=== PATIENT | female | born 1980 | race Caucasian/White ===

== ENCOUNTER 2017-04-17 06:32 | Day surgery (SDC) | payer BC ==
[2017-04-17 06:17] LABS: CHLORIDE,CL 108 mmol/L (98-110); SODIUM,NA 138 mmol/L (136-146)
--- NOTE | 2017-04-17 07:18 | PCM.PREANE ---
Preanesthetic Assessment - Anesthesia/Transfusion/Family Hx Anesthesia History: Prior Anesthesia Without Reaction Family History of Anesthesia Reaction: No Transfusion History: No Prior Transfusion(s) Intubation History: Unknown - Review of Systems General: No Symptoms Pulmonary: No Symptoms Cardiovascular: No Symptoms Gastrointestinal: No Symptoms Neurological: No Symptoms Other: Reports: None - Physical Assessment NPO Status Date: 04/16/17 NPO Status Time: 21:00 O2 Sat by Pulse Oximetry: 100 Respiratory Rate: 16 Vital Signs: Last Vital Signs Temp 36.5 C 04/17/17 06:45 Pulse 52 L 04/17/17 06:45 Resp 16 04/17/17 06:45 BP 140/76 04/17/17 06:45 Pulse Ox 100 04/17/17 06:45 Height: 1.61 m Weight: 58.513 kg ASA Class: 1 Mental Status: Alert & Oriented x3 Airway Class: Mallampati = 2 Dentition: Reports: Normal Dentition Thyro-Mental Finger Breadths: 3 Mouth Opening Finger Breadths: 3 ROM/Head Extension: Full Lungs: Clear to Auscultation, Normal Respiratory Effort Cardiovascular: Regular Rate, Regular Rhythm - Lab Values: Laboratory Last Values WBC 5.30 K/uL (4.0-11.0) 04/16/17 17:12 RBC 4.89 M/uL (4.30-5.90) 04/16/17 17:12 Hgb 12.2 g/dL (12.0-16.0) 04/16/17 17:12 Hct 37.8 % (36.0-46.0) 04/16/17 17:12 MCV 77.3 fL (80.0-98.0) L 04/16/17 17:12 MCH 24.9 pg (27.0-32.0) L 04/16/17 17:12 MCHC 32.3 g/dL (31.0-37.0) 04/16/17 17:12 RDW Std Deviation 40.9 fl (28.0-62.0) 04/16/17 17:12 RDW Coeff of Jose 14 % (11.0-15.0) 04/16/17 17:12 Plt Count 265 K/uL (150-400) 04/16/17 17:12 MPV 10.20 fL (7.40-12.00) 04/16/17 17:12 Neut % (Auto) 56.3 % (48.0-80.0) 04/16/17 17:12 Lymph % (Auto) 34.9 % (16.0-40.0) 04/16/17 17:12 [place] % (Auto) 7.5 % (0.0-15.0) 04/16/17 17:12 Eos % (Auto) 0.9 % (0.0-7.0) 04/16/17 17:12 Baso % (Auto) 0.4 % (0.0-1.5) 04/16/17 17:12 Neut # (Auto) 3.0 K/uL (1.4-5.7) 04/16/17 17:12 Lymph # (Auto) 1.9 K/uL (0.6-2.4) 04/16/17 17:12 [place] # (Auto) 0.4 K/uL (0.0-0.8) 04/16/17 17:12 Eos # (Auto) 0.1 K/uL (0.0-0.7) 04/16/17 17:12 Baso # (Auto) 0.0 K/uL (0.0-0.1) 04/16/17 17:12 Nucleated RBC % 0.0 /100WBC 04/16/17 17:12 Nucleated RBCs # 0 K/uL 04/16/17 17:12 Sodium 138 mmol/L (136-146) 04/16/17 17:12 Potassium 3.9 mmol/L (3.5-5.1) 04/16/17 17:12 Chloride 108 mmol/L (98-110) 04/16/17 17:12 Carbon Dioxide 22 mmol/L (21-31) 04/16/17 17:12 BUN 15 mg/dL (6.0-23.0) 04/16/17 17:12 Creatinine 0.8 mg/dL (0.6-1.5) 04/16/17 17:12 Est Cr Clr Drug Dosing 82.97 mL/min 04/16/17 17:12 Estimated GFR (MDRD) > 60.0 ml/min 04/16/17 17:12 Glucose 90 mg/dL (60-110) 04/16/17 17:12 Calcium 9.1 mg/dL (8.8-10.8) 04/16/17 17:12 HCG, Qual NEGATIVE (NEG) 04/16/17 17:12 Blood Type O POSITIVE 04/16/17 17:12 Antibody Screen NEGATIVE 04/16/17 17:12 - Allergies Allergies/Adverse Reactions: Allergies Allergy/AdvReac Type Severity Reaction Status Date / Time No Known Allergies Allergy Verified 04/12/17 09:17 - Blood Blood Available: No - Anesthesia Plan Pre-Op Medication Ordered: None - Acknowledgements Anesthesia Type Planned: General Anesthesia Pt an Appropriate Candidate for the Planned Anesthesia: Yes Alternatives and Risks of Anesthesia Discussed w Pt/Guardian: Yes Pt/Guardian Understands and Agrees with Anesthesia Plan: Yes PreAnesthesia Questionnaire HEENT History: Reports: Other (See Below) Other HEENT History: wears glasses Gastrointestinal History: Reports: None Genitourinary History: Reports: None HOST History: Reports: , Other (See Below) (bicornu uterus) Dermatologic History: Reports: None - Past Surgical History Head Surgeries/Procedures: Reports: None HEENT Surgical History: Reports: Other (See Below) Other HEENT Surgeries/Procedures: septum repair GI Surgical History: Reports: Cholecystectomy Female Surgical History: Reports: Section (x3) Dermatological Surgical History: Reports: Other (See Below) (scar revision) - SUBSTANCE USE Smoking Status *Q: Never Smoker Recreational Drug Use History: No - HOME MEDS Home Medications: Home Meds Aloe Vera 1 tab PO BEDTIME 04/12/17 [History] Fluticasone Furoate [Flonase Sensimist] 1 spray NASBOTH ASDIRECTED PRN 04/12/17 [History] - CURRENT (IN HOUSE) MEDS Current Meds: Current Medications Lactated Ringer's (Ringers, Lactated) 1,000 mls @ 125 mls/hr IV ASDIRECTED YURI
[2017-04-17] MEDS: Lactated Ringers 1,000 ML IV SCH ×2 (07:24→14:11)
[2017-04-17] MEDS ORDERED: Succinylcholine/Normal Saline 200 MG/10 ML Syringe ONE (07:32)
[2017-04-17] MEDS ORDERED: fentaNYL 100 MCG/2 ML SDV ONE ×3 (07:32→10:08)
[2017-04-17] MEDS ORDERED: Propofol 200 MG/20 ML SDV ONE (07:32)
[2017-04-17] MEDS ORDERED: Midazolam 1 MG/ML 2 ML SDV ONE (07:32)
[2017-04-17] MEDS ORDERED: Rocuronium 10 MG/ML 10 ML Syringe ONE (07:32)
[2017-04-17] MEDS ORDERED: Lidocaine 2% 5 ML SDV ONE (07:32)
[2017-04-17] MEDS ORDERED: Belladonna Alkaloids/Opium 16.2-30 MG Supp RECTAL PRN (07:40)
[2017-04-17] MEDS ORDERED: Methylene Blue 50 MG/10 ML Ampule ONE (07:41)
[2017-04-17] MEDS ORDERED: Bupivacaine 0.25% 10 ML SDV ONE (07:42)
[2017-04-17] MEDS ORDERED: Fluorescein 5 ML Vial ONE (07:55)
[2017-04-17] MEDS ORDERED: Sodium Chloride 0.9% 20 ML ONE (08:05)
[2017-04-17] MEDS ORDERED: ceFAZolin 1 GM Vial ONE (08:05)
[2017-04-17] MEDS ORDERED: HYDROmorphone 2 MG/ML SDV ONE (08:34)
[2017-04-17] MEDS ORDERED: Ketorolac 30 MG/ML SDV ONE (08:44)
[2017-04-17] MEDS ORDERED: Ondansetron 4 MG/2 ML SDV ONE (08:44)
[2017-04-17] MEDS ORDERED: Glycopyrrolate 0.2 MG/ML SDV ONE (08:44)
[2017-04-17] MEDS ORDERED: Neostigmine Methylsulfate 1 MG/ML 5 ML Syringe ONE (08:44)
[2017-04-17] MEDS ORDERED: Furosemide 40 MG/4 ML VIAL ONE (08:45)
[2017-04-17] MEDS: fentaNYL 100 MCG/2 ML SDV IVPUSH PRN ×2 (10:40→10:45)
[2017-04-17] MEDS ORDERED: Ondansetron 4 MG/2 ML SDV IVPUSH PRN (10:42)
[2017-04-17] MEDS ORDERED: Morphine 4 MG/ML Syringe IVPUSH PRN (10:42)
[2017-04-17] MEDS ORDERED: Promethazine 25 MG/ML SDV IM PRN (10:42)
--- NOTE | 2017-04-17 10:42 | PCM.OPNOTE ---
- General Post-Op/Procedure Note Date of Surgery/Procedure: 04/17/17 Operative Procedure(s): laparoscopically assisted vaginal hysterectomy with bilateral salpingectomy and repair of cystotomy Findings: Adhesion of the omentum to left lower quadrant. Left tube was encased in adhesions adjacent to the left ovary, adhesions between the peritoneum overlying the bladder and the anterior abdominal wall. Dense adhesions between the cervix and bladder, bicornuate uterus. On cystoscopy there was copious flow of urine/fluoroscein from bilateral ureteral orifices and the cystotomy repair was intact when bladder was distended. Pre Op Diagnosis: menorrhagia, bicornuate uterus, prior X3 Post-Op Diagnosis: Same and dense pelvic adhesions Anesthesia Technique: General ET Tube Primary Surgeon: Khadijah Villavicencio Secondary Surgeon: Ania Tucker Anesthesia Provider: Adry Arellano Monologist: Tsering Holcomb Pathology: uterus and bilateral fallopian tubes. Fluid Replacement, Intraop: 2,000 EBL in mLs: 200 Complications: None Known Condition: Good
[2017-04-17] MEDS ORDERED: FLUTICASONE FUROATE NASBOTH PRN (10:50)
[2017-04-17] MEDS ORDERED: Belladonna Alkaloids/Opium 16.2-30 MG Supp RECTAL ONE (10:58)
[2017-04-17] MEDS ORDERED: Acetaminophen 1,000 MG in Premix Bag 1 BAG IV ONE (10:58)
[2017-04-17] MEDS: Morphine 2 MG/ML Syringe IVPUSH PRN ×4 (12:31→19:43)
[2017-04-17] MEDS: Acetaminophen/oxyCODONE 325-5 MG Tab PO PRN ×2 (13:39→18:09)
[2017-04-17] MEDS: Ibuprofen 800 MG Tab PO PRN ×2 (15:02→21:18)
--- NOTE | 2017-04-17 15:56 | PCM.SN ---
- Free Text/Narrative Note: AFVSS Pain currently 4-5 /10, improved after oral Ibuprofen. Reviewed operative findings including extensive adhesions between bladder and cervix with cystotomy. Discussed plan to continue catheter for 7 days with oral antibiotic prophylaxis. After next course of pain medication, will have her ambulate. Hgb 10.3 postop.
--- NOTE | 2017-04-17 16:22 | OR ---
SURGEON: Khadijah Villavicencio M.D. DATE OF PROCEDURE: 04/17/2017 PREOPERATIVE DIAGNOSES: 1. Menorrhagia. 2. Stress urinary incontinence. POSTOPERATIVE DIAGNOSES: 1. Menorrhagia. 2. Stress urinary incontinence. PROCEDURES PERFORMED: Laparoscopically assisted vaginal hysterectomy with bilateral salpingectomy, cystotomy, and repair. [employer]SE LABORER: Ania Tucker MD ANESTHESIA: General endotracheal. FLUIDS: 2000 mL of crystalloid. ESTIMATED BLOOD LOSS: 200 mL. FINDINGS: There were adhesions of the omentum to the left lower quadrant. Dense adhesion between the anterior bladder peritoneum and the anterior abdominal wall. The left tube was encased adjacent to the left ovary and adhesions. The bilateral ovaries did appear normal. The uterus was bicornuate in shape. The bladder was densely adherent to the lower uterine segment and cervix. DISPOSITION: Stable to recovery. COMPLICATIONS: None known. BRIEF HISTORY: This is a 36-year-old female, she is G3, P 3 with three prior deliveries. She has been treated for menorrhagia over recent years using hormonal therapy. However, due to her bicornuate uterus, she is not a candidate for more conservative surgical therapies such as ablation or IUD. Then, menorrhagia has been getting more severe and she did have an endometrial biopsy, which was benign. Preoperatively, she desired definitive management with hysterectomy for risk reduction. She also requests removal of tubes with retention of ovaries. She has had three prior deliveries. She was counseled regarding risk of bladder adhesions including possibility of requiring a laparotomy for dissection of dense adhesions between the bladder and the lower uterine segment. Preoperatively, she also mentioned that she does have some stress incontinence and if possible, we would like to have this treated at the same time. She did undergo a cystometry. She was evaluated and was appropriate for a Solyx single incision suburethral sling. She is therefore consented for a laparoscopically assisted vaginal hysterectomy with bilateral salpingectomy and cystoscopy with possible laparotomy if dense adhesions are noted and Solyx mid urethral sling with risks discussed including bleeding, infection, injury to bowel, bladder, blood vessels, ureters or other organs, risk of thromboembolic event, and risk of anesthesia. Additional risks related to the sling include dyspareunia, mesh erosion into the urethra or into the vagina, urinary retention, and infection. Understanding all these risks, she does desire to proceed. DESCRIPTION OF PROCEDURE: With the patient in dorsal lithotomy position, under adequate general endotracheal anesthesia, the abdomen was prepped with chlorhexidine, and the perineum and vagina were prepped with Betadine and draped in usual fashion for a laparoscopically-assisted vaginal surgery. SCDs were in place. She had received a gram of Ancef IV. The bladder had been drained and then backfilled with 30 mL of dilute methylene blue and an appropriate time-out was held. Bimanual examination revealed an anteverted mobile uterus. The speculum was placed in the vagina. Anterior lip of the cervix was grasped with an Allis clamp and the uterus sounded to 10 cm. The cervix was dilated to 7 mm Hegar dilator. The ZUMI uterine manipulator was placed to the uterine fundus and filled with air. The speculum was removed. The coning machine operator's gloves were changed. Attention was then turned abdominally, where a 0.25% Marcaine was injected inferior to the umbilicus. A vertical 5 mm incision was made with a scalpel. The anterior abdominal wall was elevated. Veress needle was inserted. Opening pressure was 3 mmHg. CO2 was insufflated to develop an adequate pneumoperitoneum, and a 5 mm port was placed, and the laparoscope was placed into the abdominal cavity. There was no evidence of any trauma from the port placement and therefore the patient was placed in Trendelenburg position. Two additional ports were placed 2 cm medial and cephalad from the anterior superior iliac spine on the right and the left, these were 5 mm ports placed under direct visualization. Findings as recorded above were noted and decision was made to proceed starting on the left side with using the LigaSure to carefully dissect the fimbrial tip of the tube from the ovary. Due to the dense adhesions of the remainder of the tube, which was entirely encased. The fimbrial end was removed separately and sent with the entire specimen. The more proximal tube was then able to be grasped and carefully dissected free from the infundibulopelvic ligament and the ovary, and the LigaSure was used to proceed proximally along the mesosalpinx. As dissection was performed to the level of the uterus, the LigaSure was then placed through the medial port, and utero-ovarian ligament was cross clamped, doubly ligated, and cut, and the round ligament was cross clamped, doubly ligated, and cut, and the anterior leaf of the broad ligament was opened down to the level of the anterior cervix where dense adhesions began posteriorly. The broad ligament was opened and the uterine vessels were then doubly cauterized and ligated using the LigaSure. I began the dissection anteriorly, immediately adjacent to the lower uterine segment and cervix. Initially, incising and using the ligature to release the dense adhesion between the anterior bladder and the anterior abdominal wall, and then proceeding immediately adjacent to the lower uterine segment and cervix, lateral to proximally progressing approximately 2 to 3 cm before extremely dense adhesion was identified. The hydrodissection was then utilized and then attention was turned to the right side. The tube and ovary were free on the right. The LigaSure was utilized to proceed from distal to proximal along the mesosalpinx to release the tube, and then across the utero-ovarian ligament and the round ligament in a similar fashion as the opposite side. There were no adhesions on the right side; therefore, the anterior leaf was opened more easily along with the posterior leaf, and the uterine vessels were doubly cauterized and cut. I did further dissect anteriorly again immediately adjacent to the cervix ligating and incising the dense adhesions. I performed further hydrodissection; however, there remained a dense adhesion in the midline, which I felt was better addressed vaginally; therefore, the abdomen was desufflated. The abdomen was covered in sterile fashion. The patient was placed in the high Trendelenburg position, and attention was then turned vaginally. The Mcmanus catheter was then released. The weighted speculum was placed posteriorly, and the cervix was grasped with a Leonor tenaculum and circumscribed using electrocautery. The posterior cul-de-sac was entered sharply. The Arina Auvard speculum was placed posteriorly. The anterior dissection was begun and while palpating the midline area, it was noted that there was an adhesion, which was integral between the cervix and the bladder, a small cystotomy approximately 1 cm was performed, and then this facilitated release of the dense adhesion in a safe manner. The finger was then able to be placed into the peritoneal cavity. The smooth surface of the uterus was palpated and the bilateral uterosacral ligaments were cross clamped, cut, and ligated using Nany ligature of 2-0 Polysorb. There was a small pedicle remaining, which was cross clamped, cut, and ligated using Nany ligature of 2-0 Polysorb. The uterus and tubes were then delivered vaginally and sent to pathology along with the left fimbrial tip. The 1 cm cystotomy was then repaired using a running suture for the mucosal layer of 3-0 plain followed by an imbricating layer of 3-0 plane in the muscularis followed by imbricating layer in the peritoneum and muscularis of the 3-0 Polysorb. The bladder was then backfilled with sterile milk and the integrity was confirmed and the sterile milk was then released. The uterosacral ligaments, which had been plicated were ligated to the vaginal apices bilaterally. The vagina was then closed with a running lock suture of 0 Polysorb. Cystoscopy was then performed with findings of bilateral ureteral orifices showing copious flow of bright green urine after fluorescein had been given IV. The small cystotomy site was inspected and again the integrity was confirmed, and the plicated layer was visible within the bladder mucosa. The site was on the posterior bladder, several cm cephalad to the trigone. This being completed, a Mcmanus catheter was replaced, and attention was then turned abdominally. The pelvis was copiously irrigated. Any areas of bleeding that were noted were cauterized. Endo-Avitene was then placed at the vaginal cuff, and the abdomen was desufflated. The pelvis was inspected under 5 mmHg pressure and was completely hemostatic; therefore, the abdomen was completely desufflated. Port sites were removed. The skin was closed with a running subcuticular suture of 3-0 Caprosyn. Speculum was then used to inspect the vagina, which was hemostatic. Final sponge, needle, and instrument counts were reported as correct. There were no known complications. The patient was transferred to recovery in good condition. Please note that due to the required cystotomy, the mid urethral sling was not performed at this time and can be rescheduled at a later date. BENOIT / LELIA /[id number] ESPERANZA
[2017-04-17] MEDS ORDERED: hydrOXYzine Pamoate 25 MG Cap PO STA (20:46)
[2017-04-18 05:41] LABS: CHLORIDE,CL 109 mmol/L (98-110); SODIUM,NA 137 mmol/L (136-146)
--- NOTE | 2017-04-18 07:29 | PCM48HPAN ---
Post Anesthesia Note - EVALUATION WITHIN 48HRS OF ANESTHETIC Vital Signs in Normal Range: Yes Patient Participated in Evaluation: Yes Respiratory Function Stable: Yes Airway Patent: Yes Cardiovascular Function Stable: Yes Hydration Status Stable: Yes Pain Control Satisfactory: Yes Nausea and Vomiting Control Satisfactory: Yes Mental Status Recovered: Yes
[2017-04-18] MEDS: Ibuprofen 800 MG Tab PO PRN ×2 (07:53→13:32)
[2017-04-18] MEDS: Acetaminophen/oxyCODONE 325-5 MG Tab PO PRN ×2 (07:55→12:19)
--- NOTE | 2017-04-18 07:58 | PCM.SURGPN ---
- General Info Date of Service: 04/18/17 POD#: 1 Post-Op Diagnosis: menorrhagia Functional Status: Reports: Tolerating Diet, Ambulating. Denies: Pain Controlled (has not had pain med since last night. When taking pain meds, pain is controlled.), Urinating (will go home with leg bag for one week.) - Review of Systems General: Reports: No Symptoms HEENT: Reports: No Symptoms Pulmonary: Reports: No Symptoms Cardiovascular: Reports: No Symptoms Gastrointestinal: Reports: No Symptoms Genitourinary: Reports: No Symptoms Musculoskeletal: Reports: No Symptoms Skin: Reports: No Symptoms Neurological: Reports: No Symptoms Psychiatric: Reports: No Symptoms - Patient Data Vitals - Most Recent: Last Vital Signs Temp 36.9 C 04/18/17 04:00 Pulse 52 L 04/18/17 04:00 Resp 16 04/18/17 04:00 BP 95/56 L 04/18/17 04:00 Pulse Ox 96 04/18/17 04:00 Weight - Most Recent: 58.5 kg I&O - Last 24 Hours: Intake & Output 04/17/17 04/18/17 04/18/17 22:59 06:59 14:59 Intake Total 1070 350 Output Total 350 1100 Balance 720 -750 Lab Results Last 24 Hrs: Laboratory Results - last 24 hr 04/17/17 04/18/17 04/18/17 Range/Units 14:53 04:59 04:59 WBC 5.64 (4.0-11.0) K/uL RBC 4.21 L (4.30-5.90) M/uL Hgb 10.6 L 10.6 L (12.0-16.0) g/dL Hct 32.6 L 33.0 L (36.0-46.0) % MCV 78.4 L (80.0-98.0) fL MCH 25.2 L (27.0-32.0) pg MCHC 32.1 (31.0-37.0) g/dL RDW Std Deviation 41.0 (28.0-62.0) fl RDW Coeff of Jose 15 (11.0-15.0) % Plt Count 204 (150-400) K/uL MPV 10.20 (7.40-12.00) fL Neut % (Auto) 62.0 (48.0-80.0) % Lymph % (Auto) 29.6 (16.0-40.0) % Slope % (Auto) 7.3 (0.0-15.0) % Eos % (Auto) 0.9 (0.0-7.0) % Baso % (Auto) 0.2 (0.0-1.5) % Neut # (Auto) 3.5 (1.4-5.7) K/uL Lymph # (Auto) 1.7 (0.6-2.4) K/uL Slope # (Auto) 0.4 (0.0-0.8) K/uL Eos # (Auto) 0.1 (0.0-0.7) K/uL Baso # (Auto) 0.0 (0.0-0.1) K/uL Nucleated RBC % 0.0 /100WBC Nucleated RBCs # 0 K/uL Sodium 137 (136-146) mmol/L Potassium 4.2 (3.5-5.1) mmol/L Chloride 109 (98-110) mmol/L Carbon Dioxide 23 (21-31) mmol/L BUN 9 (6.0-23.0) mg/dL Creatinine 0.8 (0.6-1.5) mg/dL Est Cr Clr Drug Dosing 81.19 mL/min Estimated GFR (MDRD) > 60.0 ml/min Glucose 96 (60-110) mg/dL Calcium 8.2 L (8.8-10.8) mg/dL Med Orders - Current: Current Medications Lactated Ringer's (Ringers, Lactated) 1,000 mls @ 125 mls/hr IV ASDIRECTED [facility] Last Admin: 04/17/17 14:11 Dose: 125 mls/hr Ibuprofen (Motrin) 800 mg PO Q6H PRN PRN Reason: Pain (mild 1-3) Last Admin: 04/17/17 21:18 Dose: 800 mg Morphine Sulfate (Morphine) 2 mg IVPUSH Q2H PRN PRN Reason: Pain (severe 7-10) Last Admin: 04/17/17 19:43 Dose: 2 mg Morphine Sulfate (Morphine) 4 mg IVPUSH Q2H PRN PRN Reason: Pain (severe 7-10) Nitrofurantoin Macrocrystals (Macrobid) 100 mg PO DAILY YURI Ondansetron HCl (Zofran) 4 mg IVPUSH Q6H PRN PRN Reason: Nausea/Vomiting Oxycodone/Acetaminophen (Percocet 325-5 Mg) 1 tab PO Q4H PRN PRN Reason: Pain (moderate 4-6) Oxycodone/Acetaminophen (Percocet 325-5 Mg) 2 tab PO Q4H PRN PRN Reason: Pain (moderate 4-6) Last Admin: 04/17/17 18:09 Dose: 2 tab Fluticasone Furoate [Flonase Sensimist] 1 [place] 1 each NASBOTH ASDIRECTED PRN PRN Reason: sinus congestion Promethazine HCl (Phenergan) 25 mg IM Q6H PRN PRN Reason: Nausea/Vomiting Discontinued Medications Belladonna Alkaloids/Opium (B & O Supprettes No. 15a) 1 supp RECTAL ONETIME PRN PRN Reason: Pain Stop: 04/17/17 11:30 Belladonna Alkaloids/Opium (B & O Supprettes No. 15a) 1 supp RECTAL ONETIME ONE Stop: 04/17/17 10:59 Last Admin: 04/17/17 10:45 Dose: 1 supp Bupivacaine HCl (Sensorcaine-Mpf 0.25%) Confirm Administered Dose 20 ml .ROUTE .STK-MED ONE Stop: 04/17/17 07:43 Cefazolin Sodium (Ancef) Confirm Administered Dose 1 gm .ROUTE .STK-MED ONE Stop: 04/17/17 08:06 Fentanyl (Sublimaze) Confirm Administered Dose 100 mcg .ROUTE .STK-MED ONE Stop: 04/17/17 07:33 Fentanyl (Sublimaze) 50 - 100 mcg IVPUSH Q5M PRN PRN Reason: Pain Stop: 04/17/17 11:40 Last Admin: 04/17/17 10:45 Dose: 50 mcg Fentanyl (Sublimaze) Confirm Administered Dose 100 mcg .ROUTE .STK-MED ONE Stop: 04/17/17 09:13 Fentanyl (Sublimaze) Confirm Administered Dose 100 mcg .ROUTE .STK-MED ONE Stop: 04/17/17 10:09 Fluorescein Sodium (Ak-Fluor) Confirm Administered Dose 5 ml .ROUTE .STK-MED ONE Stop: 04/17/17 07:56 Furosemide (Lasix) Confirm Administered Dose 40 mg .ROUTE .[facility] ONE Stop: 04/17/17 08:46 Glycopyrrolate (Robinul) Confirm Administered Dose 0.2 mg .ROUTE .[facility]-MED ONE Stop: 04/17/17 08:45 Hydromorphone HCl (Dilaudid) Confirm Administered Dose 2 mg .ROUTE .[facility]-MED ONE Stop: 04/17/17 08:35 Hydroxyzine Pamoate (Vistaril) 50 mg PO ONETIME STA Stop: 04/17/17 20:47 Last Admin: 04/17/17 21:19 Dose: 50 mg Sodium Chloride (Normal Saline) Confirm Administered Dose 20 mls @ as directed .ROUTE .[facility] ONE Stop: 04/17/17 08:06 Acetaminophen 1,000 mg/ Premix 100 mls @ 400 mls/hr IV NOW ONE Stop: 04/17/17 11:12 Last Admin: 04/17/17 11:00 Dose: 400 mls/hr Ketorolac Tromethamine (Toradol) Confirm Administered Dose 30 mg .ROUTE .[facility]- MED ONE Stop: 04/17/17 08:45 Lidocaine (Xylocaine-Mpf 2%) Confirm Administered Dose 5 ml .ROUTE .[facility]-MED ONE Stop: 04/17/17 07:33 Methylene Blue (Provayblue) Confirm Administered Dose 50 mg .ROUTE .[facility] ONE Stop: 04/17/17 07:42 Midazolam HCl (Versed 1 Mg/Ml) Confirm Administered Dose 2 mg .ROUTE .[facility]-MED ONE Stop: 04/17/17 07:33 Neostigmine Methylsulfate (Neostigmine) Confirm Administered Dose 5 mg .ROUTE .ST-MED ONE Stop: 04/17/17 08:45 Ondansetron HCl (Zofran) Confirm Administered Dose 4 mg .ROUTE .[facility]-MED ONE Stop: 04/17/17 08:45 Propofol (Diprivan 20 Ml) Confirm Administered Dose 200 mg .ROUTE .ST-MED ONE Stop: 04/17/17 07:33 Rocuronium Ragland (Zemuron) Confirm Administered Dose 100 mg .ROUTE .ST-MED ONE Stop: 04/17/17 07:33 Succinylcholine Chloride (Succinylcholine In Ns Pf) Confirm Administered Dose 200 mg .ROUTE .ST-MED ONE Stop: 04/17/17 07:33 - Exam Wound/Incisions: Dressing Dry and Intact General: Alert, Oriented HEENT: Pupils Equal Neck: Supple Lungs: Clear to Auscultation, Normal Respiratory Effort Cardiovascular: Regular Rate, Regular Rhythm GI/Abdominal Exam: Normal Bowel Sounds, Soft, Non-Tender, No Distention, No Abnormal Bruit Extremities: Normal Inspection, Non-Tender, No Pedal Edema, Normal Capillary Refill Skin: Warm, Dry, Intact Neurological: No New Focal Deficit Psy/Mental Status: Alert, Normal Affect, Normal Mood - Problem List & Annotations (1) Menorrhagia SNOMED Code(s): 763802996 Code(s): N92.0 - EXCESSIVE AND FREQUENT MENSTRUATION WITH REGULAR CYCLE Status: Acute Current Visit: Yes - Problem List Review Problem List Initiated/Reviewed/Updated: Yes - My Orders Last 24 Hours: Active Orders 24 hr Category Date Time Status Patient Status [ADT] Routine ADT 04/17/17 10:42 Active Antiembolic Devices [RC] PER UNIT ROUTINE Care 04/17/17 10:43 Active Bradycardia-Neuroaxis [employer] [RC] ROUTINE Care 04/17/17 07:39 Active Hypertension-Neuroaxis [employer] [RC] ROUTINE Care 04/17/17 07:39 Active Hypotension-Neuroaxis [employer] [RC] ROUTINE Care 04/17/17 07:39 Active Insert Mcmanus Catheter [Insert Urinary Catheter] [OM.PC] Care 04/17/17 16:00 Ordered Q24H Notify Provider Intake and Out [RC] ASDIRECTED Care 04/17/17 10:42 Active Notify Provider Vital Signs [RC] ASDIRECTED Care 04/17/17 10:42 Active Oxygen Therapy [RC] ASDIRECTED Care 04/17/17 07:39 Active Oxygen Therapy [RC] ASDIRECTED Care 04/17/17 10:42 Active RT Incentive Spirometry [RC] Q2HWA Care 04/17/17 10:42 Active Up With Assistance [RC] PER UNIT ROUTINE Care 04/17/17 10:42 Active Up ad Tamika [RC] PER UNIT ROUTINE Care 04/17/17 10:42 Active Urinary Catheter Assessment [RC] ASDIRECTED Care 04/17/17 15:54 Active Vital Signs [RC] PER UNIT ROUTINE Care 04/17/17 10:42 Active Vital Signs [RC] Q4H Care 04/17/17 07:39 Active Regular Diet [DIET] Diet 04/17/17 Dinner Active Acetaminophen/oxyCODONE [Percocet 325-5 MG] Med 04/17/17 10:42 Active 1 tab PO Q4H PRN Acetaminophen/oxyCODONE [Percocet 325-5 MG] Med 04/17/17 10:42 Active 2 tab PO Q4H PRN Ibuprofen [Motrin] Med 04/17/17 10:42 Active 800 mg PO Q6H PRN Lactated Ringers [Ringers, Lactated] 1,000 ml Med 04/17/17 07:15 Active IV ASDIRECTED Morphine Med 04/17/17 10:42 Active 2 mg IVPUSH Q2H PRN Morphine Med 04/17/17 10:42 Active 4 mg IVPUSH Q2H PRN Nitrofurantoin Slope/Macrocryst [Macrobid] Med 04/18/17 09:00 Active 100 mg PO DAILY Ondansetron [Zofran] Med 04/17/17 10:42 Active 4 mg IVPUSH Q6H PRN Patient's Own Medication [Ptom] Med 04/17/17 10:50 Active 1 each NASBOTH ASDIRECTED PRN Promethazine [Phenergan] Med 04/17/17 10:42 Active 25 mg IM Q6H PRN Abdominal Binder [OM.PC] Per Unit Routine Oth 04/17/17 10:44 Ordered Peripheral IV Discontinue [OM.PC] Routine Oth 04/17/17 10:42 Ordered Sequential Compression Device [OM.PC] Per Unit Routine Oth 04/17/17 10:42 Ordered Resuscitation Status Routine Resus Stat 04/17/17 10:42 Ordered Medication Orders Lactated Ringer's (Ringers, Lactated) 1,000 mls @ 125 mls/hr IV ASDIRECTED YURI Last Admin: 04/17/17 14:11 Dose: 125 mls/hr Infusion: 04/17/17 14:11 Dose: 125 mls/hr Admin: 04/17/17 07:24 Dose: 125 mls/hr Ibuprofen (Motrin) 800 mg PO Q6H PRN PRN Reason: Pain (mild 1-3) Last Admin: 04/17/17 21:18 Dose: 800 mg Admin: 04/17/17 15:02 Dose: 800 mg Morphine Sulfate (Morphine) 2 mg IVPUSH Q2H PRN PRN Reason: Pain (severe 7-10) Last Admin: 04/17/17 19:43 Dose: 2 mg Admin: 04/17/17 16:50 Dose: 2 mg Admin: 04/17/17 14:55 Dose: 2 mg Admin: 04/17/17 12:31 Dose: 2 mg Morphine Sulfate (Morphine) 4 mg IVPUSH Q2H PRN PRN Reason: Pain (severe 7-10) Nitrofurantoin Macrocrystals (Macrobid) 100 mg PO DAILY YURI Ondansetron HCl (Zofran) 4 mg IVPUSH Q6H PRN PRN Reason: Nausea/Vomiting Oxycodone/Acetaminophen (Percocet 325-5 Mg) 1 tab PO Q4H PRN PRN Reason: Pain (moderate 4-6) Oxycodone/Acetaminophen (Percocet 325-5 Mg) 2 tab PO Q4H PRN PRN Reason: Pain (moderate 4-6) Last Admin: 04/17/17 18:09 Dose: 2 tab Admin: 04/17/17 13:39 Dose: 2 tab Fluticasone Furoate [Flonase Sensimist] 1 [place] 1 each NASBOTH ASDIRECTED PRN PRN Reason: sinus congestion Promethazine HCl (Phenergan) 25 mg IM Q6H PRN PRN Reason: Nausea/Vomiting - Assessment Assessment (Free Text/Narrative):: POD#1 after LAVH/bilateral salpingectomy, cystotomy and repair. Stable, pain is controlled when she receives medications, she is tolerating diet. - Plan Plan (Free Text/Narrative):: Given oral pain medication today. Educate about use of leg bag, continue for one week. Discharge instructions reviewed.
[2017-04-18] MEDS ORDERED: Nitrofurantoin Monohydrate/Macrocrystalline 100 MG Cap PO SCH (09:00)
== END 2017-04-18 13:35 | disposition home or self-care (01) ==
LOC: MW.SDS 06:32 → MW.MS 11:34 → MW.SDS 04-18 13:35
PROVIDERS: ATTEND Obstetrics & Gynecology
DX: N92.0 Excessive and frequent menstruation with regular cycle (principal); N39.3 Stress incontinence (female) (male); Q51.3 Bicornate uterus; Z98.890 Other specified postprocedural states; Z79.51 Long term (current) use of inhaled steroids
CPT/HCPCS: 36415; 57288; 58552; 80048; 84703; 85014; 85018; 85025; 86850; 86900; 86901; A9270; J0690; J1170; J1940; J2250; J2270; J2405; J3010; J7120; 00840; 88307; J1885; J2704

== ENCOUNTER 2017-07-03 08:07 | Day surgery (SDC) | payer BC ==
[~2017-07-03 08:07] MED LIST: Lactated Ringers 1,000 ML IV SCH
[2017-07-03] MEDS ORDERED: Lidocaine 2% 5 ML SDV ONE (08:21)
[2017-07-03] MEDS ORDERED: Propofol 200 MG/20 ML SDV ONE ×2 (08:22→08:26)
[2017-07-03] MEDS ORDERED: Midazolam 1 MG/ML 2 ML SDV ONE (08:22)
[2017-07-03] MEDS ORDERED: fentaNYL 100 MCG/2 ML SDV ONE ×2 (08:22→09:37)
[2017-07-03] MEDS ORDERED: Sodium Chloride 0.9% 10 ML Syringe FLUSH PRN (08:30)
[2017-07-03] MEDS ORDERED: Lactated Ringers 1,000 ML IV SCH (08:30)
[2017-07-03] MEDS ORDERED: Sodium Chloride 0.9% 2.5 ML Syringe FLUSH PRN (08:30)
--- NOTE | 2017-07-03 08:57 | PCM.PREANE ---
Preanesthetic Assessment - Anesthesia/Transfusion/Family Hx Anesthesia History: Prior Anesthesia Without Reaction Family History of Anesthesia Reaction: No Transfusion History: No Prior Transfusion(s) Intubation History: Unknown - Review of Systems General: No Symptoms Pulmonary: No Symptoms Cardiovascular: No Symptoms Gastrointestinal: No Symptoms Neurological: No Symptoms Other: Reports: None - Physical Assessment O2 Sat by Pulse Oximetry: 99 Respiratory Rate: 16 Vital Signs: Last Vital Signs Temp 36.4 C 07/03/17 08:12 Pulse 59 L 07/03/17 08:12 Resp 16 07/03/17 08:12 BP 116/67 07/03/17 08:12 Pulse Ox 99 07/03/17 08:12 Height: 1.61 m Weight: 55.792 kg ASA Class: 1 Mental Status: Alert & Oriented x3 Airway Class: Mallampati = 1 Dentition: Reports: Normal Dentition Thyro-Mental Finger Breadths: 3 Mouth Opening Finger Breadths: 3 ROM/Head Extension: Full Lungs: Clear to Auscultation, Normal Respiratory Effort Cardiovascular: Regular Rate, Regular Rhythm - Allergies Allergies/Adverse Reactions: Allergies Allergy/AdvReac Type Severity Reaction Status Date / Time No Known Allergies Allergy Verified 06/29/17 08:07 - Blood Blood Available: No - Anesthesia Plan Pre-Op Medication Ordered: None - Acknowledgements Anesthesia Type Planned: MAC Pt an Appropriate Candidate for the Planned Anesthesia: Yes Alternatives and Risks of Anesthesia Discussed w Pt/Guardian: Yes Pt/Guardian Understands and Agrees with Anesthesia Plan: Yes PreAnesthesia Questionnaire HEENT History: Reports: Other (See Below) Other HEENT History: wears glasses Gastrointestinal History: Reports: None Genitourinary History: Reports: None CORRECTIONAL FACILITY NURSE History: Reports: Dermatologic History: Reports: None - Past Surgical History Head Surgeries/Procedures: Reports: None HEENT Surgical History: Reports: Other (See Below) Other HEENT Surgeries/Procedures: septum repair GI Surgical History: Reports: Cholecystectomy Female Surgical History: Reports: Section (x3), Other (See Below) ( [facility] 04/23) Dermatological Surgical History: Reports: Other (See Below) - SUBSTANCE USE Smoking Status *Q: Never Smoker Recreational Drug Use History: No - HOME MEDS Home Medications: Home Meds Fluticasone Furoate [Flonase Sensimist] 1 spray NASBOTH ASDIRECTED PRN 04/12/17 [History] Multivitamin [Multivitamins] 1 tab PO DAILY 06/29/17 [History] - CURRENT (IN HOUSE) MEDS Current Meds: Current Medications Fentanyl (Sublimaze) 50 mcg IVPUSH Q5M PRN PRN Reason: Pain (severe 7-10) Stop: 07/04/17 08:30 Lactated Ringer's (Ringers, Lactated) 1,000 mls @ 125 mls/hr IV ASDIRECTED YURI Lactated Ringer's (Ringers, Lactated) 1,000 mls @ 125 mls/hr IV ASDIRECTED YURI Sodium Chloride (Saline Flush) 10 ml FLUSH ASDIRECTED PRN PRN Reason: Keep Vein Open Sodium Chloride (Saline Flush) 2.5 ml FLUSH ASDIRECTED PRN PRN Reason: Keep Vein Open Discontinued Medications Fentanyl (Sublimaze) Confirm Administered Dose 100 mcg .ROUTE .STK-MED ONE Stop: 07/03/17 08:23 Lidocaine (Xylocaine-Mpf 2%) Confirm Administered Dose 5 ml .ROUTE .STK-MED ONE Stop: 07/03/17 08:22 Midazolam HCl (Versed 1 Mg/Ml) Confirm Administered Dose 2 mg .ROUTE .STK-MED ONE Stop: 07/03/17 08:23 Propofol (Diprivan 20 Ml) Confirm Administered Dose 400 mg .ROUTE .STK-MED ONE Stop: 07/03/17 08:23 Propofol (Diprivan 20 Ml) Confirm Administered Dose 200 mg .ROUTE .STK-MED ONE Stop: 07/03/17 08:27
[2017-07-03] MEDS ORDERED: Bupivacaine 0.25% 10 ML SDV ONE (09:19)
[2017-07-03] MEDS ORDERED: Lidocaine 1% with EPINEPHrine 1:100,000 20 ML MDV ONE (09:19)
[2017-07-03] MEDS ORDERED: Neomycin/Polymyxin B Bladder Irrigation 1 ML Amp ONE (09:20)
[2017-07-03] MEDS ORDERED: ceFAZolin 1 GM Vial ONE (09:30)
[2017-07-03] MEDS ORDERED: Sodium Chloride 0.9% 20 ML ONE (09:30)
[2017-07-03] MEDS ORDERED: Glycopyrrolate 0.2 MG/ML SDV ONE ×2 (09:33→09:41)
[2017-07-03] MEDS: fentaNYL 100 MCG/2 ML SDV IVPUSH PRN ×2 (10:36→10:40)
--- NOTE | 2017-07-03 10:39 | PCM.OPNOTE ---
- General Post-Op/Procedure Note Date of Surgery/Procedure: 07/03/17 Operative Procedure(s): single incision mid-urethral sling insertion Findings: urethral hypermobility Pre Op Diagnosis: Urinary stress incontinence Post-Op Diagnosis: same Anesthesia Technique: Local, MAC Primary Surgeon: Khadijah Villavicencio Associate Professor Computer Science: Saturnino Garcia Associate Professor Computer Science: Mara Ferrera EBL in mLs: 30 Complications: none known Condition: Stable Free Text/Narrative:: Dictation: [id number]
[2017-07-03] MEDS ORDERED: Meperidine PF 25 MG/ML Syringe ONE (10:40)
[2017-07-03] MEDS ORDERED: Meperidine PF 25 MG/ML Syringe IVPUSH ONE (10:41)
--- NOTE | 2017-07-03 11:12 | PCM.POSTAN ---
POST ANESTHESIA ASSESSMENT - MENTAL STATUS Mental Status: Alert, Oriented - RESPIRATORY Respiratory Status: Respiratory Rate WNL, Airway Patent, O2 Saturation Stable - CARDIOVASCULAR CV Status: Pulse Rate WNL, Blood Pressure Stable - GASTROINTESTINAL GI Status: No Symptoms - PAIN Pain Score: 5 - POST OP HYDRATION Hydration Status: Adequate & Stable - OBSERVATIONS Free Text/Narrative:: no anesthesia problems
--- NOTE | 2017-07-03 11:59 | PCM48HPAN ---
Post Anesthesia Note - EVALUATION WITHIN 48HRS OF ANESTHETIC Vital Signs in Normal Range: Yes Patient Participated in Evaluation: Yes Respiratory Function Stable: Yes Airway Patent: Yes Cardiovascular Function Stable: Yes Hydration Status Stable: Yes Pain Control Satisfactory: Yes Nausea and Vomiting Control Satisfactory: Yes Mental Status Recovered: Yes Resp Rate: 14 - COMMENTS/OBSERVATIONS Free Text/Narrative:: Pt stable with no apparent anesthesia problems.
--- NOTE | 2017-07-03 14:04 | OR ---
SURGEON: Khadijah Villavicencio M.D. DATE OF PROCEDURE: 07/03/2017 PREOPERATIVE DIAGNOSIS: Stress urinary incontinence. POSTOPERATIVE DIAGNOSIS: Stress urinary incontinence. PROCEDURE: Single incision midurethral sling. MANIPULATIVE THERAPY SPECIALIST: Saturnino Garcia. SECOND MANIPULATIVE THERAPY SPECIALIST: Magalie Ferrera MS4 ANESTHESIA: MAC with local. ESTIMATED BLOOD LOSS: 30 mL. FINDINGS: Urethral hypermobility, area of granulation tissue at the right vaginal apex. COMPLICATIONS: None known. DISPOSITION: Stable to recovery. BRIEF HISTORY: This is a 36-year-old female, she had a laparoscopically-assisted vaginal hysterectomy in April that was complicated by cystotomy related to prior sections. The planning at that time was to proceed with a single side midurethral sling at the end of the procedure; however, this was not performed due to cystotomy. She has had persistent stress incontinence since that time and would like to proceed with single incision suburethral sling. Risks were discussed. First of all, cystometry shows normal bladder volume and sensation. No detrusor instability. She has urethral hypermobility. No evidence of ISD. She is a good candidate for midurethral sling. She was given the option of a single incision sling or transobturator sling. She would like to proceed with a single incision sling. She has previously been given written information and was previously counseled, and was counseled again regarding risks including, but not limited to mesh erosion, pelvic pain, dyspareunia, voiding dysfunction, urinary retention, mesh migration, and injury to surrounding organs, and visceral. Understanding all these risks, she does desire to proceed with a single incision midurethral sling. I have described my experience with midurethral sling with extensive experience with retropubic slings and transobturator sling. I have just recently converted to midurethral single incision sling. She understands this and would like to proceed. Product rep was present over face time at the time of procedure due to her flight being diverted from [place]. DESCRIPTION OF PROCEDURE: With the patient in the dorsal lithotomy position, under adequate IV sedation, the perineum and vagina were prepped with Betadine and draped in usual fashion for vaginal surgery. SCDs were in place. The bladder was drained and Mcmanus catheter was left in place. Upon initial examination, there was noted to be some blood in the vagina, which was unusual since she has had a recent hysterectomy. I did perform examination and at the right vaginal apex, there was a small area of granulation tissue, this was cauterized with silver nitrate. Following this, I did proceed routinely with the placement of the Solyx. I palpated the urethra utilizing the Mcmanus bulb as a landmark for the ureterovesical junction. An incision was made approximately 1 cm cephalad from the urethral meatus and carried 1.1 cm cephalad stopping well below the level of the Mcmanus bulb. Markings were made at the obturator notch on the right and the left at the level of the clitoris for landmark. The midline incision was further extended laterally using Metzenbaum scissors using a push and spread technique. Hydrodissection had been performed using a 1:1:1 solution of Marcaine with 1% lidocaine with epinephrine with saline and injected towards the obturator foramen on the right and the left. Once the dissection was complete, the Solyx sling was placed onto the transducer. The sling was marked in the midline placing the tip of the sling at a 45-degree angle relative to the floor, entering the incision beneath the urethra and extending towards the obturator foramen until I was passed beneath the pubic ramus. The handle of the sling was then rotated 30 degrees maintaining a 45-degree angle relative to the floor and the tip of the sling, and I was able to push the tip through the obturator foramen with a pop, it was secured. Therefore, the handle was released and the opposite arm of the sling was placed onto the handle and this was repeated on the opposite side prior to releasing the sling on the left side. I did backfill the bladder with 300 mL of sterile water and with the Crede maneuver, I did not find any leakage. Hemostatic could easily be placed between the sling and the urethra, and there was no undue tension on the urethra. Attempts were made after the catheter was removed to have the patient cough. There was no leakage with cough, but her coughing effort was minimal; therefore, I did rely on the Crede maneuver. The Mcmanus catheter was replaced, and the bladder was drained. The placement site was instilled with antibiotic solution and the vaginal mucosa was closed with a running locked suture of 3-0 Polysorb. All the instruments were removed from the vagina. Final sponge, needle, and instrument counts were reported as correct. There were no known complications. The Mcmanus catheter was left in place, and a voiding trial will be performed in recovery. BENOIT ROWELL /[id number]
== END 2017-07-03 12:20 ==
LOC: MW.SDS 08:07
PROVIDERS: ATTEND Obstetrics & Gynecology
DX: N36.41 Hypermobility of urethra (principal); N39.3 Stress incontinence (female) (male); Z79.899 Other long term (current) drug therapy
CPT/HCPCS: 36415; 57288; 85027; J0690; J2175; J2250; J3010; J2704